=== PATIENT | male | born 1990 | race Hispanic/Latino ===

== ENCOUNTER 2017-06-08 15:02 | Emergency (ER) | payer SELFPAY ==
[2017-06-08] MEDS ORDERED: IBUPROFEN 600 MG TABLET ONE (15:51)
== END 2017-06-08 15:54 | disposition home or self-care (01) ==
LOC: EDH 15:02
DX: S43.491A Other sprain of right shoulder joint, initial encounter (principal); S50.11XA Contusion of right forearm, initial encounter; Z72.0 Tobacco use; W18.39XA Other fall on same level, initial encounter; Y93.02 Activity, running; Y92.89 Other specified places as the place of occurrence of the external cause; Y99.8 Other external cause status
CPT/HCPCS: 73030; 73090

== ENCOUNTER 2021-09-26 22:36 | Emergency (ER) | payer SELFPAY ==
[~2021-09-26] VITALS: Ht 160 cm; Wt 68.0 kg
[2021-09-26] MEDS ORDERED: ONDANSETRON 4MG INJ ONE (22:40)
[2021-09-26] MEDS ORDERED: MORPHINE 4 MG SYG ONE (22:41)
[2021-09-26 22:54] LABS: BASOPHILS % (AUTO) 0.7 % (0.0-5.0); EOSINOPHILS % (AUTO) 2.3 % (0.0-8.0); HEMATOCRIT 41.2 % (42-54); LYMPHOCYTES % (AUTO) 32.2 % (21.0-51.0); MEAN CORPUSCULAR HEMOGLOBIN 31.6 pg (27.0-33.0); MEAN CORPUSCULAR HGB CONC 33.7 g/dL (32.0-36.0); MEAN CORPUSCULAR VOLUME 93.6 fL (79-99); MONOCYTES % (AUTO) 9.4 % (3.0-13.0); PLATELET COUNT (AUTO) 289 K/uL (130-400); RED CELL DISTRIBUTION WIDTH 12.2 % (11.0-15.5); WHITE BLOOD COUNT (AUTO) 9.5 K/uL (4.8-10.8)
[2021-09-26 23:05] LABS: CARBON DIOXIDE 20 mmol/L (21-32); CHLORIDE 104 mmol/L (101-111); CREATININE 1.2 mg/dL (0.5-1.5); GLUCOSE,RANDOM 111 mg/dL (70-105); POTASSIUM 3.3 mmol/L (3.5-5.1); SODIUM SERUM 139 mmol/L (136-145); UREA NITROGEN, BLOOD 17 mg/dL (7-18)
[2021-09-26 23:07] LABS: PROTHROMBIN TIME 10.9 SEC (9.6-11.6)
[2021-09-26 23:08] LABS: PARTIAL THROMBOPLASTIN TIME 26.2 SEC (26.3-35.5)
[2021-09-26 23:09] LABS: ALANINE AMINOTRANSFERASE 28 U/L (12-78); ALBUMIN 4.3 g/dL (3.5-5.0); ASPARTATE AMINOTRANSFERASE 26 U/L (10-37); BILIRUBIN,TOTAL 0.4 mg/dL (0.2-1.0); TOTAL PROTEIN, SERUM 7.6 g/dL (6.0-8.3)
[2021-09-26] MEDS ORDERED: LORAZEPAM 2 MG/ML 1 ML VIAL ONE (23:23)
[2021-09-26] MEDS ORDERED: IOHEXOL 350 MG/ML 100ML INFUS..BTL IV ONE (23:28)
[2021-09-26] MEDS ORDERED: PROPOFOL 10 MG/ML 20ML VIAL IV ONE (23:30)
[2021-09-26] MEDS ORDERED: FENTANYL CITRATE PF 50 MCG/1 ML 2ML VIAL ONE (23:31)
[2021-09-27 00:25] LABS: APPEARANCE,URINE Clear (CLEAR); BILIRUBIN,URINE Negative (NEGATIVE); COLOR,URINE Yellow (YELLOW); GLUCOSE, URINE (UA) Negative (NEGATIVE); KETONES,URINE Trace mg/dL (NEGATIVE); LEUKOCYTE ESTERASE ,URINE Negative (NEGATIVE); NITRATE,URINE Negative (NEGATIVE); OCCULT BLOOD,URINE Negative (NEGATIVE); PROTEIN,URINE Negative (NEGATIVE); UROBILINOGEN,URINE 0.2 mg/dL (0.2-1.0)
[2021-09-27 05:55] VITALS: BP 138/86
[2021-09-27] MEDS ORDERED: POTASSIUM BICARB/CIT AC 25 MEQ TABLET.EFF ONE (06:24)
[2021-09-27] MEDS ORDERED: IBUPROFEN 600 MG TABLET PO ONE (06:30)
[2021-09-27] MEDS ORDERED: IBUP-2070 PO (06:31)
== END 2021-09-27 07:08 | disposition home or self-care (01) ==
LOC: EDH 22:36
DX: S53.105A Unspecified dislocation of left ulnohumeral joint, initial encounter (principal); X58.XXXA Exposure to other specified factors, initial encounter; Y93.89 Activity, other specified; Y92.89 Other specified places as the place of occurrence of the external cause; Y99.8 Other external cause status
CPT/HCPCS: 24600; 36415; 70450; 71045; 71260; 72125; 73070; 73080; 74177; 80053; 81003; 85025; 85610; 85730; 86850; 86900; 86901; 96374; 96375; 99285; J2060; J2270; J2405; J2704; J3010; Q9967